=== PATIENT | male | born 1945 | race Caucasian/White ===

== ENCOUNTER → 2017-03-08 08:40 | Outpatient (CLI) | payer MEDICARE ==
[2016-01-17 12:45] VITALS: BMI 28.4
[~2017-03-08 08:40] MED LIST: BAYER CHEWABLE81 MG PO; CORTISPORIN EY7.5 ML OTH; GLUCOPHAGE500 MG PO; IPRAT-ALBUT 0.5-3 ML UPD; LASIX40 MG PO; LEVAQUIN750 MG PO; MEDROL DOSE PACK4 MG PO; MUCINEX600 MG PO; PLAVIX75 MG PO; TOPROL XL100 MG PO; ZESTRIL20 MG PO; ZOCOR20 MG PO; ZOCOR40 MG PO
== END | disposition home or self-care (01) ==
LOC: D.CT 08:40
DX: I71.2 Thoracic aortic aneurysm, without rupture (principal)

== ENCOUNTER 2017-11-20 05:15 | Day surgery (SDC) | payer MEDICARE ==
[~2017-11-20] VITALS: Ht 182.9 cm; Wt 88.9 kg
--- NOTE | ~2017-11-20 | OP ---
PATIENT NAME: MEJIA CODY MEDICAL RECORD: [id number] :41 LOCATION:D.OPS ADMISSION DATE: SURGEON: JOCELYNE LEE MD DATE OF OPERATION: 11/20/2017 PREOPERATIVE DIAGNOSIS: Cecal polyp. POSTOPERATIVE DIAGNOSIS: Sessile cecal polyp of 3.2 cm. PROCEDURES: 1. Total colonoscopy to cecum. 2. Colonic polypectomy utilizing the argon plasma research development director with tattooing. SURGEON: Jocelyne Lee MD WARD CLERK: None. BLOOD LOSS: Minimal. ANESTHESIA: General. COMPLICATIONS: None. The risks, possible complications and alternatives to procedure were explained to the patient. He elects to proceed. OPERATIVE COURSE: The patient was conveyed to the operating room electively on 11/20/2017. General anesthesia was induced by the anesthesia staff. The patient was placed in the Lyle position. A digital rectal examination was performed. A colonoscope was inserted through the anus. It was easily advanced to the cecum. The prep was adequate. Cold endoscopic biopsies were obtained of the cecal polyp, which appeared to drape over the appendiceal orifice. I then ablated the polypoid base with the argon plasma research development director utilizing the right colon setting in the forced mode. As I am concerned that the patient may require a resection of this area, I then advanced the sclerotherapy needle. I had advanced the needle into the submucosal tissues and injected 3 cc of Terrie ink for a tattooing. I then slowly withdrew the endoscope. The pullback was greater than 13-minute pullback. A retroflexed view was obtained in the rectum. I then unretroflexed the scope and removed it under direct vision. I should make note that at the hepatic flexure, I noted a lipoma that was on the back side of a fold. I will see the patient in my office in 2-3 weeks. We will review the results of the biopsies at that time. I may recommend a cecectomy at that time, which could be performed laparoscopically. TRANSINT:[id number] Voice Confirmation ID: [id number] DOCUMENT ID: [id number] 12/16/2017 Edited to correct lithographic proofer error on postop alix dmmariya. OPERATIVE REPORT [id number] MEJIA CODY JOCELYNE LEE MD at 1511 CC: ANTIONE FONSECA M.D., LEENA COELHO MD and VISHAL PATEL [id number] DICTATION DATE: 11/20/17 0942 COMMUNICATIONS SUPERVISOR: 11/20/17 1111 [facility] 11/20/17 [address] [place] [address]
[~2017-11-20 05:15] MED LIST changes: +BYSTOLIC10 MG PO
[2017-11-20 06:29] VITALS: Ht 182.9 cm; Wt 88.9 kg
[2017-11-20 07:51] LABS: HEMATOCRIT 43.2 % (42.0-54.0); HEMOGLOBIN 14.2 g/dL (13.5-17.5); MCHC 32.9 g/dL (31.0-37.0); MCV 97.3 fL (80.0-100.0); MEAN PLATELET VOLUME 9.6 fL (7.4-10.4); RBC 4.44 10x6/uL (4.20-6.10); WBC 10.2 10x3/uL (4.8-10.8)
== END 2017-11-20 11:30 | disposition home or self-care (01) ==
LOC: D.OPS 05:15 → D.PAN 08:00 → D.OPS 08:00 → D.PAN 10:00 → D.OPS 10:00
PROVIDERS: Anesthesiology
DX: D12.0 Benign neoplasm of cecum (principal); Z01.812 Encounter for preprocedural laboratory examination

== ENCOUNTER 2018-02-12 06:06 | Inpatient (IN) | payer MEDICARE ==
[~2018-02-12] VITALS: Ht 182.9 cm; Wt 88.6 kg
--- NOTE | ~2018-02-12 | OP ---
PATIENT NAME: MEJIA CODY MEDICAL RECORD: [id number] :41 LOCATION:D.MS Chung2231 ADMISSION DATE:02/12/18 SURGEON: JOCELYNE LEE MD DATE OF OPERATION: 02/12/2018 PREOPERATIVE DIAGNOSIS: Endoscopically unresectable cecal polyp. POSTOPERATIVE DIAGNOSIS: Endoscopically unresectable cecal polyp. PROCEDURE: Laparoscopic cecectomy. SURGEON: Jocelyne Lee MD OPERATIONAL METEOROLOGIST: None. BLOOD LOSS: Minimal. ANESTHESIA: General. COMPLICATIONS: None. As I am removing the patient's cecum, this is a partial colectomy. The patient failed endoscopic removal. I tattooed the polyp. OPERATIVE COURSE: The patient was conveyed to the operating room electively on 02/12/2018. General anesthesia was induced by the anesthesia staff. The abdomen was sterilely prepped and draped. A small skin lady was accomplished in the left upper quadrant. Veress needle was inserted through the skin lady into the peritoneal cavity. CO2 insufflation was begun. Once a sufficient pneumoperitoneum had been achieved, a 5-mm trocar was inserted through an incision in the left lower quadrant. Under direct internal vision utilizing a television camera, a 12-mm trocar was inserted through an incision at the umbilicus. Another 5-mm trocar was inserted through an incision in the right lower quadrant. During insertion of the Veress needle and all trocars, there appeared to have been no injury to the bowels, any intraperitoneal or retroperitoneal structures. Abdominal survey was undertaken. The liver was without nodules. There is no evidence of cirrhosis. I incised along the right white line of Toldt. I folded the cecum medially. I took down the mesoappendix with the EnSeal device. In order to better identify the ileocecal valve, I took down a very redundant fold of Treves with the EnSeal device. I then grasped the appendix and pulled it caudad. I stapled away the cecum with an Endo-ALEX type stapler with blue loads. I put within an endoscopic retrieval bag and withdrew it through the umbilical fascial defect. I opened up the specimen on the back table. I saw no polypoid tissue. I asked Dr. Whitehead from the pathology department come over and inspect the cecum with me, she did this. We identified no polyp within the specimen. I then rescrubbed and regowned. I returned to the operation and then I grasped the remaining colonic tissue and identified the polyp on the lateral surface of the colon. I stapled very close to the ileocecal valve. I then angled my stapler cephalad. I then placed this tissue in an endoscopic retrieval bag and OPERATIVE REPORT [id number] MEJIA CODY withdrew it through the umbilical fascial defect. I opened up the specimen on the back table. It did reveal that the polyp was contained within this excised specimen and that there was a margin of tissue around it, I grossly freed of the polyp. The tattoo was also contained within the specimen. I then rescrubbed and regowned. I returned to the operation and irrigated in the abdomen. There was no bleeding even at low pressure of 8. The Tre-Claudia suture closure device and 0 Vicryl sutures were used to close the umbilical fascia. The umbilical skin was closed with interrupted 4-0 Vicryl Rapide sutures. The other 2 skin incisions were closed with interrupted intracuticular 3-0 Vicryl. Benzoin and Steri-Strips were applied. The patient was extubated and conveyed to post-anesthesia care unit where he was in stable condition. As he has undergone a colon resection, he will be placed in an admission status. TRANSINT:[id number] Voice Confirmation ID: [id number] DOCUMENT ID: [id number] JOCELYNE LEE MD at 1227 CC: ANTIONE FONSECA M.D., LEENA COELHO MD and VISHAL PATEL [id number] DICTATION DATE: 02/12/18 1205 SANITATION DIRECTOR: 02/12/18 1322 DIS IN 02/13/18 [facility] [address] [place] [address]
--- NOTE | ~2018-02-12 | DS ---
PATIENT:MEJIA CODY :41 MEDICAL RECORD: [id number] DISCHARGE SUMMARY ADMISSION DATE: 02/12/18 DISCHARGE DATE: 02/13/18 PRINCIPAL DIAGNOSIS: Endoscopically unresectable cecal polyp. OTHER DIAGNOSES: Include cardiac arrhythmia, hypertension, peripheral vascular disease, hypercholesterolemia, cardiac rhythm problems, carotid artery disease, thoracic aortic aneurysm, abdominal aortic aneurysm, heart murmur, insomnia. PRINCIPAL PROCEDURE: Laparoscopic cecectomy. HOSPITAL COURSE: The patient was admitted. He underwent the above operative procedure. The pathology on the cecum revealed an appendix with no significant pathologic changes. There was also a cecal polyp, which revealed a sessile tubulovillous adenoma close to the site of a tattoo pigment. There was focal high-grade dysplastic changes. No invasive neoplasm was noted. The patient was admitted to inpatient status. However, he was doing so well, felt that he could go home on the first postoperative day. The patient was having some insomnia. I prescribed Restoril for the insomnia. He was dismissed home with [place] for pain. TRANSINT:[id number] Voice Confirmation ID: [id number] DOCUMENT ID: [id number] JOCELYNE LEE MD at 1842 CC: LEENA COELHO MD and VISHAL PATEL DO [id number] DICTATION DATE: 03/26/18 0856 STAKER SURVEYING: 03/26/18 1128 DIS IN 02/13/18 [facility] [address] [place] [address]
[2018-02-12 07:48] VITALS: BP 116/56; BMI 26.5
[2018-02-12 08:26] LABS: HEMATOCRIT 42.9 % (42.0-54.0); HEMOGLOBIN 14.2 g/dL (13.5-17.5); MCHC 33.1 g/dL (31.0-37.0); MCV 96.6 fL (80.0-100.0); MEAN PLATELET VOLUME 9.6 fL (7.4-10.4); RBC 4.44 10x6/uL (4.20-6.10); RDW 13.8 % (11.5-14.5); WBC 8.1 10x3/uL (4.8-10.8)
[2018-02-12 08:40] LABS: CALC OSMOLALITY 283 mosm/kg (275-300); CALCIUM 9.2 mg/dL (8.5-10.1); CARBON DIOXIDE 21.8 mmol/L (21.0-32.0); CHLORIDE - SERUM 105 mmol/L (98-107); GLUCOSE 118 mg/dL (74-106); POTASSIUM - SERUM 4.9 mmol/L (3.5-5.1); SODIUM 139 mmol/L (136-145); UREA NITROGEN 27 mg/dL (7-18); eGFR NON AFRICAN AMERICAN 78 mL/min (90-120)
[2018-02-12 15:15] VITALS: BP 126/55; Ht 182.9 cm; Wt 88.6 kg
[2018-02-12 15:30] VITALS: BP 126/55
[2018-02-12 20:00] VITALS: BP 116/52
[2018-02-13 04:00] VITALS: BP 140/63
== END 2018-02-13 08:28 | disposition home or self-care (01) | DRG 331 ==
LOC: D.SDCHOLD 06:06 → D.MS 06:06 → D.SDCHOLD 08:45 → D.OPS 08:45 → EDSTATUS 09:45 → D.PAN 09:45 → D.OPS 10:15 → D.MS 14:50
PROVIDERS: Anesthesiology; Surgery
PROC: 0DTH4ZZ Resection of Cecum, Percutaneous Endoscopic Approach (ICD-10-PCS; principal; 2018-02-12 08:45)
DX: D12.0 Benign neoplasm of cecum (principal); I10 Essential (primary) hypertension; E11.9 Type 2 diabetes mellitus without complications; E78.2 Mixed hyperlipidemia; F17.200 Nicotine dependence, unspecified, uncomplicated; H10.45 Other chronic allergic conjunctivitis

== ENCOUNTER → 2018-04-01 13:55 | Outpatient (CLI) | payer MEDICARE ==
[2018-02-12 15:15] VITALS: BMI 26.5
== END | disposition home or self-care (01) ==
LOC: D.CT 13:55
DX: I71.6 Thoracoabdominal aortic aneurysm, without rupture (principal)

== ENCOUNTER → 2019-04-23 12:49 | Outpatient (CLI) | payer MEDICARE ==
[2018-02-12 15:15] VITALS: BMI 26.5
== END | disposition home or self-care (01) ==
LOC: D.CT 12:49
PROVIDERS: ATTEND Internal Medicine Cardiovascular Disease
DX: I71.4 Abdominal aortic aneurysm, without rupture (principal)

== ENCOUNTER 2019-08-25 11:32 | Observation (INO) | payer MEDICARE ==
[~2019-08-25] VITALS: Ht 182.9 cm; Wt 72.3 kg
[2019-08-25 12:06] LABS: APPEARANCE CLEAR (CLEAR); COLOR STRAW (YELLOW)
[2019-08-25 12:07] LABS: BILIRUBIN NEGATIVE (NEGATIVE); GLUCOSE 250 mg/dL (NEGATIVE); KETONE NEGATIVE (NEGATIVE); NITRITE NEGATIVE (NEGATIVE); PROTEIN NEGATIVE (NEGATIVE); UROBILINOGEN NORMAL (NORMAL)
[2019-08-25 12:08] LABS: BASOPHILS 0.2 % (0-2); EOSINOPHILS 2.2 % (0-7); HEMATOCRIT 39.2 % (42.0-54.0); HEMOGLOBIN 12.8 g/dL (13.5-17.5); IMMATURE GRANULOCYTES 0.4 % (0-5); LYMPHOCYTES 21.1 % (15-50); MCH 31.7 pg (26.0-34.0); MCHC 32.7 g/dL (31.0-37.0); MEAN PLATELET VOLUME 10.1 fL (7.4-10.4); MONOCYTES 6.7 % (2-11); NEUTROPHILS 69.4 % (40-80); PLATELET COUNT 199 10x3/uL (130-400); RBC 4.04 10x6/uL (4.20-6.10); RDW 12.6 % (11.5-14.5); WBC 8.9 10x3/uL (4.8-10.8)
[2019-08-25 12:21] LABS: ALBUMIN 3.6 g/dL (3.4-5.0); ALKALINE PHOSPHATASE 81 U/L (46-116); ALT (SGPT) 41 U/L (10-68); BILIRUBIN - TOTAL 0.38 mg/dL (0.2-1.3); CALC OSMOLALITY 289 mosm/kg (275-300); CALCIUM 9.3 mg/dL (8.5-10.1); CARBON DIOXIDE 27.1 mmol/L (21.0-32.0); CHLORIDE - SERUM 102 mmol/L (98-107); CREATININE - SERUM 1.1 mg/dL (0.6-1.3); MAGNESIUM - SERUM 1.6 mg/dL (1.8-2.4); POTASSIUM - SERUM 4.5 mmol/L (3.5-5.1); PROTEIN - SERUM 7.1 g/dL (6.4-8.2); SODIUM 136 mmol/L (136-145); UREA NITROGEN 16 mg/dL (7-18); eGFR NON AFRICAN AMERICAN 69 mL/min (90-120)
[2019-08-25 12:29] LABS: KETONE - SERUM NEGATIVE (NEGATIVE)
[2019-08-25 12:30] LABS: GLUCOSE 413 mg/dL (74-106)
--- NOTE | 2019-08-25 13:02 | NUR ---
FSBS 303.
--- NOTE | 2019-08-25 14:36 | NUR ---
MET PATIENT. PATIENT WANTED ME TO CHECK HIS BLOOD GLUCOSE BECAUSE IT HAS DROPPED TREMENDOUSLY. BG IS AT 296. TOLD HIM I WOULD RECHECK AROUND DINNER TIME. THAT HE ABSOLUTELY HAD TO BE OUT OF HERE BY 1200 TOMORROW. THAT IT WAS FINANCIAL IMPERATIVE. GAMAL IS PAGING POORNIMA TO COME SEE HIM. PATIENT HAS WENT TO HIS CAR. JOKED THAT HE WAS GOING TO [employer] TO GET SOME FOOD BECAUSE THEY GAVE HIM VEGETARIAN LASAGNA. TOLD HIM THAT WOULD JUST INCREASE HIS BLOOD GLUCOSE EVEN MORE.
[2019-08-25 15:03] VITALS: BP 134/60; Ht 182.9 cm; Wt 72.3 kg
[2019-08-25] MEDS ORDERED: GLUCOPHAGE1000 MG PO (15:06)
[2019-08-25] MEDS ORDERED: LISINOPRIL5 MG PO (15:07)
[2019-08-25 16:45] VITALS: BP 143/80
--- NOTE | 2019-08-25 18:12 | NUR ---
PATIENT SITTING ON SIDE OF BED. REQUESTED AND RECEIVED COFFEE. NO NEEDS AT THIS TIME. CL IN REACH. WCTM
[2019-08-25 20:00] VITALS: BP 120/64
[2019-08-26] VITALS: BP 184/80
[2019-08-26 04:00] VITALS: BP 117/75
--- NOTE | 2019-08-26 04:08 | NUR ---
I have reviewed this patient and I concur with the Shift Assessment completed by the Licensed Practical Nurse today this shift.
[2019-08-26 04:45] LABS: BASOPHILS 0.5 % (0-2); EOSINOPHILS 4.5 % (0-7); HEMOGLOBIN 12.9 g/dL (13.5-17.5); IMMATURE GRANULOCYTES 0.3 % (0-5); LYMPHOCYTES 29.9 % (15-50); MCH 31.8 pg (26.0-34.0); MCHC 33.1 g/dL (31.0-37.0); MCV 96.1 fL (80.0-100.0); MEAN PLATELET VOLUME 10.3 fL (7.4-10.4); MONOCYTES 9.1 % (2-11); NEUTROPHILS 55.7 % (40-80); PLATELET COUNT 201 10x3/uL (130-400); RBC 4.06 10x6/uL (4.20-6.10); RDW 12.8 % (11.5-14.5); WBC 7.6 10x3/uL (4.8-10.8)
[2019-08-26 05:00] LABS: ALBUMIN 3.2 g/dL (3.4-5.0); ALKALINE PHOSPHATASE 70 U/L (46-116); ALT (SGPT) 38 U/L (10-68); BILIRUBIN - TOTAL 0.31 mg/dL (0.2-1.3); CALCIUM 8.9 mg/dL (8.5-10.1); CARBON DIOXIDE 28.2 mmol/L (21.0-32.0); CHLORIDE - SERUM 105 mmol/L (98-107); MAGNESIUM - SERUM 1.6 mg/dL (1.8-2.4); PROTEIN - SERUM 6.5 g/dL (6.4-8.2); SODIUM 141 mmol/L (136-145); UREA NITROGEN 13 mg/dL (7-18)
[2019-08-26 05:08] LABS: CALC OSMOLALITY 281 mosm/kg (275-300); CREATININE - SERUM 0.6 mg/dL (0.6-1.3); GLUCOSE 122 mg/dL (74-106); POTASSIUM - SERUM 3.8 mmol/L (3.5-5.1); eGFR NON AFRICAN AMERICAN > 90 mL/min (90-120)
[2019-08-26] MEDS ORDERED: NICODERM C1 PATCH .1 TRANSDERM (09:45)
[2019-08-26] MEDS ORDERED: JANUMET XR 50-1 EACH PO (09:46)
[2019-08-26 09:48] VITALS: BP 169/67
--- NOTE | 2019-08-26 09:56 | NUR ---
NUTRITION CONSULT. PT REPORTS HE HAS HAD DIABETIC EDU SEVERAL TIMES AND HAS MET WITH DIETITIANS BEFORE. STATES HE JUST NEEDS TO PAY MORE ATTENTION TO HIS DIET AND THAT DR. COELHO IS SUPPOSED TO CHANGE HIS MEDS. DECLINES ANY FURTHER INFORMATION AND VOICES NO QUESTIONS AT THIS TIME. RD FOLLOWING
--- NOTE | 2019-08-26 10:12 | NUR ---
PT ALERT X 4. BREATH SOUNDS CLEAR BILAT. IV TO LEFT AC DC'D, TIP INTACT. PT REPORTING NO PAIN AT THIS TIME. PT BEING DC'D TO HOME TODAY. BED LOW, CALL LIGHT IN REACH. NO OTHER NEEDS AT THIS TIME.
== END 2019-08-26 11:13 | disposition home or self-care (01) ==
LOC: D.ER 11:32 → D.MS 12:27 → OBSVTIME 13:20 → D.MS 08-26 11:13
PROVIDERS: Family Medicine; ADMIT Family Medicine; ATTEND Family Medicine
DX: E11.65 Type 2 diabetes mellitus with hyperglycemia (principal); I11.0 Hypertensive heart disease with heart failure; I50.9 Heart failure, unspecified; J44.9 Chronic obstructive pulmonary disease, unspecified; I73.9 Peripheral vascular disease, unspecified; Z95.0 Presence of cardiac pacemaker

== ENCOUNTER 2020-04-05 11:32 | Inpatient (IN) | payer MEDICARE ==
[~2020-04-05] VITALS: Ht 182.9 cm; Wt 62.8 kg
--- NOTE | ~2020-04-05 | HEMODYNAMI ---
PATIENT:DWIGHT CODY MEDICAL RECORD: [id number] : 41 LOCATION:D.MS Chung2210 ADMISSION DATE: 04/05/20 Generatedon:04/07/202011:36 Patient name: DWIGHT CODY Patient #: [id number] SSN: : 1945 Date of study: 04/07/2020 Page: Of Hemodynamic Procedure Report Patient Data Patient Demographics Procedure consent was obtained First Name: DWIGHT Gender: Male Last Name: ESCOBAR : 1945 [facility] Initial: PRISCILA Age: 74 year(s) Patient #: [id number] Race: Unknown Additional ID: [id number] Contact details [address]: [address] [place] [address] State: [place] City: [place] Zip code: [address] Past Medical History Allergies: No known allergies Admission Admission Data Admission Date: 04/05/2020 Admission Time: 14:45 Room #: D.2210 Procedure Procedure Types Cath Procedure Peripheral Cath Diagnostic Procedure Mysql Database Administrator Peripheral Procedures Biliary Biliary Drain External Procedure Description Procedure Date Procedure Date: 04/07/2020 Procedure Start Time: 10:43 Procedure Staff Name Function Dwight Pickering MD Performing Physician Yris Keith RT Applied Mathematician Ryan Green MD Additional personnel Tanisha Wallace RN Nurse Miky Mendoza RT Scrub Bernardo Boothe CRNA Additional personnel Procedure Data Cath Procedure Fluoroscopy Diagnostic fluoroscopy Total fluoroscopy Time: time: 16.5 min 16.5 min Diagnostic fluoroscopy Total fluoroscopy dose: 341 dose: 341 mGy mGy Contrast Material Contrast Material Type Amount (ml) Isovue 300 55 Diagnostic catheters Device Type Used For End Catheter Placement Merit Impress KA2 5Fr 65CM catheter ([id number]) Procedure Medications Medication Administration Route Dosage Heparin Flush Bag added to field 1 bags (1000units/500ml NS) Lidocaine 1% added to field 20 Refer to Anesthesia Notes for Sedation Medications Hemodynamics Rest Pre Cath Intra NCS Post Cath Medications Time Medication Route Dose Verified Delivered Reason Notes Effe ctiveness by by 10:42:34 Heparin Flush added 1 Dwight Quintanilla used for Bag to bags Pickering Pickering procedure (1000units/500ml field MD VALDEZ NS) 10:43:49 Lidocaine 1% added 20ml Dwight Quintanilla for local to vial Pickering Pickering anesthetic field MD VALDEZ 10:44:00 Refer to Dwight Quintanilla Anesthesia Notes Pickering Pickering for Sedation MD VALDEZ Medications Procedure Log Time Note 9:59:49 Use device set IR Diagnostic 10:15:00 Miky Reji RT (R) (CV) sent for patient. Start room use. 10:15:06 Time tracking: Regular hours (M-F 7:00 - 5:00) 10:15:11 Plan of Care:Hemodynamics will remain stable., Cardiac rhythm will remain stable., Comfort level will be maintained., Respiratory function will remain adequate., Patient/ family verbilizes understanding of procedure., Procedure tolerated without complication., Recovers from procedure without complications.. 10:15:17 Patient received from Med/Surg to IR Alert and oriented. Tansferred to table in Supine position. 10:15:21 Signed procedure consent form obtained from patient. 10:15:23 Correct patient and procedure confirmed by team. 10:15:24 - 10:15:39 SEE ANESTHESIA NOTE FOR PRE PROCEDURE TIVA 10:15:40 - 10:15:45 Use device set IR Diagnostic 10:15:48 Bag Decanter () opened to sterile field. 10:15:49 Sterile Angiographic Pack opened to sterile field. 10:15:50 Tegaderm 4 x 4 (1626W) opened to sterile field. 10:36:52 KIT, INTRODUCER ACCUSTICK II W/C ([id number]) opened to sterile field. 10:36:54 Tegaderm 4 x 4 (1626W) opened to sterile field. 10:36:55 Sterile Angiographic Pack opened to sterile field. 10:36:56 Bag Decanter (2002S) opened to sterile field. 10:37:12 STOPCOCK 3-Way Large Bore ([id number]) opened to sterile field. 10:37:14 BAG, DRAINAGE EMPTY 600ML W/LADONNA (WHF353) opened to sterile field. 10:41:44 - 10:41:53 Patient allergic to No known allergies 10:42:02 Is the patient allergic to Iodine/contrast media? No. 10:42:07 - 10:42:15 Physician arrived 10:42:16 --------ALL STOP TIME OUT------ 10:42:16 Final Timeout: patient, procedure, and site verified with staff and physician. All members of the team are in agreement. 10:42:34 Heparin Flush Bag (1000units/500ml NS) 1 bags added to field was administered by Dwight Pickering MD; used for procedure; Verbal order read back and verified. 10:43:22 Fire Safety Assessment: A--An alcohol-based skin anteseptic being used preoperatively., C--Open oxygen or nitrous oxide is being used. 10:43:33 Procedure started. 10:43:33 Full Disclosure recording started 10:43:39 Local anesthetic to Abdominal area with Lidocaine 1% by Dwight Pickering MD.INITIAL ACCESS ONLY 10:43:49 Lidocaine 1% 20ml vial added to field was administered by Dwight Pickering MD; for local anesthetic; Verbal order read back and verified. 10:44:00 Refer to Anesthesia Notes for Sedation Medications was administered by Dwight Pickering MD; ; Verbal order read back and verified. 10:45:26 ULTRASOUND WAS USED TO OBTAIN ACCESS 10:52:33 AD .035 145 glide wire (D15025) opened to sterile field. 10:54:29 GLIDE CATHETER 4FR Straight 65cm (CG412) opened to sterile field. 11:11:47 A Optimus Impress KA2 5Fr 65CM catheter ([id number]) was advanced over the wire and used for . 11:22:03 DILATOR, VESSEL 07/05 opened to sterile field. 11:22:04 PEELAWAY 9FR Safe Sheath (SU9) opened to sterile field. 11:22:05 GLIDE WIRE ANGLE 180cm (GZ7784) opened to sterile field. 11:25:04 Cook BILIARY 12 FR drainage catheter (Z25070) opened to sterile field. 11:32:19 Procedure ended.(Physican Out) 11:32:21 Procedure ended.(Physican Out) 11:33:00 Fluoroscopy time 16.50 minutes. 11:33:07 Flurop Dose total: 341 11:33:07 Fluoroscopy dose: 341 mGy 11:33:43 Contrast amount:Isovue 300 55ml. 11:34:18 Report given to Recovery Room. Device Usage Item Name Manufacture Quantity Catalog Hospital Part Current Minimal Lot# / Number Charge Number Stock Stock Serial# Code Bag Decanter Microtek 2 [id number] 78975 [id number] 5 () Medical Inc. Sterile Cardinal 2 [id number] 974451 260250 5 Angiographic Health Pack Tegaderm 4 x 3M 2 1626W 630842 139443 338509 5 4 (1626W) KIT, Crooks 1 [id number] 227892 083451 611358 5 INTRODUCER Scientific ACCUSTICK II W/C ([id number]) STOPCOCK Cook Medical 1 M07599 141214 0963 372547 [id number] 3-Way Large Bore (F14389) BAG, Merit 1 LRF163 620661 383344 470143 5 [id number] DRAINAGE Medical EMPTY 600ML W/LADONNA (CHV757) [facility] Cook Medical 1 N15766 883683 513881 272743 5 [id number] .035 145 glide wire (R86416) GLIDE Terumo 1 CG412 789998 466815 5 CATHETER 4FR Straight 65cm (CG412) Merit Merit 1 [id number] 300739 129306 5 Impress KA2 Medical 5Fr 65CM catheter ([id number]) DILATOR, Cook Medical 1 A52367 607217 68760 692596 5 VESSEL 1020 PEELAWAY 9FR Microtek 1 SU9 565400 348378 548728 5 Safe Sheath Edai. (SU9) GLIDE WIRE Terumo 1 [id number] 818550 075100 860691 5 ANGLE 180cm (FA7825) Cook BILIARY Cook Medical 1 A32599 086416 013196 060941 5 [id number] 12 FR drainage catheter (V90514) Signature Audit [place] Stage Time Signature Unsigned Intra-Procedure 04/07/2020 Yris Keith 11:36:45 AM RT(R) [facility] [address] [place] [address]
[~2020-04-05 11:32] MED LIST changes: +GLUCOPHAGE1000 MG PO; +JANUMET XR 50-1 EACH PO; +LISINOPRIL5 MG PO; +NICODERM C1 PATCH .1 TRANSDERM
--- NOTE | 2020-04-05 11:45 | NUR ---
URINE TO LAB
[2020-04-05] MEDS ORDERED: GLUCOPHAGE500 MG PO (12:26)
[2020-04-05 12:34] LABS: BASOPHILS 0.6 % (0-2); EOSINOPHILS 1.5 % (0-7); HEMATOCRIT 27.6 % (42.0-54.0); IMMATURE GRANULOCYTES 1.4 % (0-5); LYMPHOCYTES 11.9 % (15-50); MCH 32.3 pg (26.0-34.0); MCHC 32.6 g/dL (31.0-37.0); MCV 98.9 fL (80.0-100.0); MEAN PLATELET VOLUME 11.2 fL (7.4-10.4); MONOCYTES 6.4 % (2-11); NEUTROPHILS 78.2 % (40-80); RBC 2.79 10x6/uL (4.20-6.10); RDW 17.5 % (11.5-14.5); WBC 7.2 10x3/uL (4.8-10.8)
[2020-04-05 12:36] LABS: PLATELET COUNT 243 10x3/uL (130-400)
[2020-04-05 12:38] LABS: BILIRUBIN 3+ (NEGATIVE); GLUCOSE 500 mg/dL (NEGATIVE); KETONE NEGATIVE (NEGATIVE); NITRITE NEGATIVE (NEGATIVE); UROBILINOGEN NORMAL (NORMAL)
[2020-04-05 12:40] LABS: BACTERIA MANY /hpf (NEGATIVE); RED CELLS - URINE NONE SEEN /hpf (0-5)
[2020-04-05 12:41] LABS: EPITHELIAL CELLS 0-5 /hpf (0-5)
[2020-04-05 12:44] LABS: CALC OSMOLALITY 283 mosm/kg (275-300); CALCIUM 9.3 mg/dL (8.5-10.1); CARBON DIOXIDE 24.3 mmol/L (21.0-32.0); CHLORIDE - SERUM 100 mmol/L (98-107); CREATININE - SERUM 0.8 mg/dL (0.6-1.3); POTASSIUM - SERUM 4.2 mmol/L (3.5-5.1); SODIUM 134 mmol/L (136-145); UREA NITROGEN 26 mg/dL (7-18); eGFR NON AFRICAN AMERICAN > 90 mL/min (90-120)
[2020-04-05 12:46] LABS: GLUCOSE 288 mg/dL (74-106)
[2020-04-05 12:54] LABS: APTT 26.1 SECONDS (22.8-39.4); INR 0.91 (0.85-1.17); PROTIME 12.3 SECONDS (11.6-15.0)
[2020-04-05 13:01] LABS: ALBUMIN 2.5 g/dL (3.4-5.0); ALT (SGPT) 479 U/L (10-68); AMYLASE - SERUM 12 U/L (25-115); BILIRUBIN - TOTAL 22.29 mg/dL (0.2-1.3); CKMB 0.6 U/L (0.0-3.6); CREATINE KINASE 15 UL (21-232); LIPASE 68 U/L (73-393); MAGNESIUM - SERUM 1.5 mg/dL (1.8-2.4); PROTEIN - SERUM 5.8 g/dL (6.4-8.2); TROPONIN-I < 0.017 ng/mL (0.000-0.060)
[2020-04-05 13:20] LABS: ALKALINE PHOSPHATASE 1697 U/L (30-120)
--- NOTE | 2020-04-05 15:57 | NUR ---
RECEIVED PATIENT FROM ER. ALERT AND ORIENTED. NO C/O PAIN. NO S/S OF ACUTE DISTRESS NOTED. JAUNDICE. UP WITH ASSIST. IV TO RIGHT FOREARM, NS INFUSING @ 75ML/HR. SITE PATENT WITHOUT REDNESS OR SWELLING. DENIES ANY NEEDS AT THIS TIME. CALL LIGHT IN REACH. WILL CONTINUE TO MONITOR.
[2020-04-05 17:03] LABS: % SATURATION 24 % (15-55); IRON 51 ug/dl (35-150); TOTAL IRON BIND CAPACITY 207 ug/dl (260-445); UNSAT IRON BIND CAPACITY 156 ug/dl (150-375)
[2020-04-05 17:14] VITALS: BP 134/60; BMI 18.3
[2020-04-05 17:17] VITALS: BP 134/60
--- NOTE | 2020-04-05 17:56 | NUR ---
PT WAS NOT NPO AT 6 PM TO DO GB U/S. TALKED TO PT AND NURSE. WILL BE NPO AT MIDNIGHT AND U/S IN AM. SIMONE CAZARES
[2020-04-05 18:45] LABS: MAGNESIUM - SERUM 1.6 mg/dL (1.8-2.4)
[2020-04-05 18:47] LABS: BILIRUBIN - DIRECT 21.04 mg/dL (0.00-0.30)
--- NOTE | 2020-04-05 19:30 | NUR ---
PT SEEN STROLLING AROUND THE UNIT. AMBULATES INDEPENDENTLY. A&O X 4. SKIN JAUNDICED, SCLERA YELLOW. NO NEEDS VOICED AT THIS TIME, CTM.
[2020-04-05 20:00] VITALS: BP 117/58
[2020-04-06] VITALS (10 sets, daily range): BP systolic 110–136; BP diastolic 44–70; Ht 182.9 cm; Wt 62.8 kg
--- NOTE | 2020-04-06 03:19 | NUR ---
I have reviewed this patient and I concur with the Shift Assessment completed by the Licensed Practical Nurse today this shift.
[2020-04-06 06:28] LABS: ALBUMIN 2.3 g/dL (3.4-5.0); ALT (SGPT) 449 U/L (10-68); BILIRUBIN - TOTAL 20.75 mg/dL (0.2-1.3); CARBON DIOXIDE 21.5 mmol/L (21.0-32.0); CHLORIDE - SERUM 102 mmol/L (98-107); POTASSIUM - SERUM 3.8 mmol/L (3.5-5.1); PROTEIN - SERUM 5.3 g/dL (6.4-8.2); SODIUM 135 mmol/L (136-145); UREA NITROGEN 20 mg/dL (7-18)
[2020-04-06 06:44] LABS: ALKALINE PHOSPHATASE 1595 U/L (30-120); CALC OSMOLALITY 275 mosm/kg (275-300); CREATININE - SERUM 0.5 mg/dL (0.6-1.3); GLUCOSE 157 mg/dL (74-106); eGFR NON AFRICAN AMERICAN > 90 mL/min (90-120)
[2020-04-06 07:15] LABS: HEPATITIS C ANTIBODY 0.1 S/CO RAT (0.0-0.9)
[2020-04-06 07:29] LABS: BASOPHILS 0.6 % (0-2); EOSINOPHILS 4.3 % (0-7); HEMATOCRIT 26.8 % (42.0-54.0); HEMOGLOBIN 8.7 g/dL (13.5-17.5); IMMATURE GRANULOCYTES 1.1 % (0-5); LYMPHOCYTES 17.7 % (15-50); MCH 31.8 pg (26.0-34.0); MCHC 32.5 g/dL (31.0-37.0); MCV 97.8 fL (80.0-100.0); MEAN PLATELET VOLUME 11.5 fL (7.4-10.4); MONOCYTES 8.9 % (2-11); NEUTROPHILS 67.4 % (40-80); PLATELET COUNT 256 10x3/uL (130-400); RBC 2.74 10x6/uL (4.20-6.10); RDW 17.1 % (11.5-14.5); WBC 7.2 10x3/uL (4.8-10.8)
--- NOTE | 2020-04-06 08:09 | NUR ---
resting in bed, no distress noted, iv infusing, npo for ercp, cont to monitor sugars and pain
--- NOTE | 2020-04-06 08:25 | NUR ---
unable to do mri due to pacemaker, voice aware
--- NOTE | 2020-04-06 08:31 | NUR ---
MRI ABDOMEN W/WO CONTRAST ORDERED ON PATIENT. PATIENT HAS A PACEMAKER, MARGARTIO WAS NOTIFIED THAT WE CANT DO THE TEST AND SHE SAID SHE WOULD CONTACT DR PATEL. EXAM CANCELLED
--- NOTE | 2020-04-06 13:45 | NUR ---
TAKEN TO GI LAB PER BED,
--- NOTE | 2020-04-06 16:10 | NUR ---
1609 AFTER BILIARY BRUSHINGS 7F 9MM PLASTIC STENT PLACEMENT
--- NOTE | 2020-04-06 16:18 | NUR ---
1619 STENT FAILED TO BE PLACED, WAS WASTED.
--- NOTE | 2020-04-06 17:38 | NUR ---
RETURNED FROM SURGERY, IV INFUSING, WILL BE NPO AFTER MN,
--- NOTE | 2020-04-06 20:00 | NUR ---
ALERT RESTING IN BED, DENIES PAIN OR NEEDS, JAUNDICE IN APPEARANCE, SEE SHIFT ASSESSMENT, CALL LIGHT IN REACH
[2020-04-07] VITALS (9 sets, daily range): BP systolic 102–126; BP diastolic 42–66
[2020-04-07 08:08] LABS: BASOPHILS 0.9 % (0-2); EOSINOPHILS 2.6 % (0-7); HEMATOCRIT 25.9 % (42.0-54.0); HEMOGLOBIN 8.3 g/dL (13.5-17.5); IMMATURE GRANULOCYTES 1.3 % (0-5); LYMPHOCYTES 9.7 % (15-50); MCH 31.8 pg (26.0-34.0); MCV 99.2 fL (80.0-100.0); MEAN PLATELET VOLUME 10.9 fL (7.4-10.4); MONOCYTES 9.4 % (2-11); NEUTROPHILS 76.1 % (40-80); PLATELET COUNT 254 10x3/uL (130-400); RBC 2.61 10x6/uL (4.20-6.10); RDW 17.7 % (11.5-14.5); WBC 7.5 10x3/uL (4.8-10.8)
[2020-04-07 08:55] LABS: ALBUMIN 2.2 g/dL (3.4-5.0); ALT (SGPT) 426 U/L (10-68); BILIRUBIN - TOTAL 22.22 mg/dL (0.2-1.3); CALCIUM 8.6 mg/dL (8.5-10.1); CARBON DIOXIDE 22.2 mmol/L (21.0-32.0); CHLORIDE - SERUM 100 mmol/L (98-107); CREATININE - SERUM 0.6 mg/dL (0.6-1.3); POTASSIUM - SERUM 3.9 mmol/L (3.5-5.1); PROTEIN - SERUM 5.2 g/dL (6.4-8.2); SODIUM 132 mmol/L (136-145); UREA NITROGEN 18 mg/dL (7-18); eGFR NON AFRICAN AMERICAN > 90 mL/min (90-120)
[2020-04-07 08:56] LABS: BILIRUBIN - DIRECT 20.16 mg/dL (0.00-0.30); BILIRUBIN - INDIRECT 2.06 mg/dL (0.00-1.00); CALC OSMOLALITY 266 mosm/kg (275-300); GLUCOSE 98 mg/dL (74-106)
[2020-04-07 09:11] LABS: ALKALINE PHOSPHATASE 1677 U/L (30-120)
[2020-04-07 09:15] LABS: INR 0.97 (0.85-1.17); PROTIME 12.8 SECONDS (11.6-15.0)
--- NOTE | 2020-04-07 12:50 | NUR ---
I have reviewed this patient and I concur with the Shift Assessment completed by the Licensed Practical Nurse today this shift.
--- NOTE | 2020-04-07 18:49 | NUR ---
RESTING IN BED WITH EYES CLOSED. RESPIRATIONS EVEN AND UNLABORED. NO S/S OF ACUTE DISTRESS NOTED. DENIES ANY NEEDS AT THIS TIME. CALL LIGHT IN REACH. WILL CONTINUE TO MONITOR.
--- NOTE | 2020-04-07 20:00 | NUR ---
ALERT UP AMBULATING IN HALLWAY, DENIES PAIN AT THIS TIME, BILLARY DRAINAGE BAG NOTED TO RIGHT SIDE, SMALL AMOUT DARK DRAINAGE NOTED, SEE SHIFT ASSESSMENT, CALL LIGHT IN REACH
[2020-04-08] VITALS: BP 111/48
[2020-04-08 04:00] VITALS: BP 134/58
[2020-04-08 06:29] LABS: EOSINOPHILS 4.5 % (0-7); HEMOGLOBIN 7.9 g/dL (13.5-17.5); IMMATURE GRANULOCYTES 1.7 % (0-5); LYMPHOCYTES 13.2 % (15-50); MCH 32.2 pg (26.0-34.0); MCHC 31.6 g/dL (31.0-37.0); MEAN PLATELET VOLUME 11.5 fL (7.4-10.4); MONOCYTES 9.2 % (2-11); NEUTROPHILS 70.4 % (40-80); PLATELET COUNT 255 10x3/uL (130-400); RBC 2.45 10x6/uL (4.20-6.10); RDW 17.4 % (11.5-14.5); WBC 7.8 10x3/uL (4.8-10.8)
[2020-04-08 06:36] LABS: CALCIUM 8.2 mg/dL (8.5-10.1); CARBON DIOXIDE 23.4 mmol/L (21.0-32.0); CHLORIDE - SERUM 102 mmol/L (98-107); SODIUM 132 mmol/L (136-145); eGFR NON AFRICAN AMERICAN 87 mL/min (90-120)
[2020-04-08 06:37] LABS: CALC OSMOLALITY 272 mosm/kg (275-300); CREATININE - SERUM 0.9 mg/dL (0.6-1.3); GLUCOSE 166 mg/dL (74-106); UREA NITROGEN 24 mg/dL (7-18)
[2020-04-08 08:49] VITALS: BP 118/68
--- NOTE | 2020-04-08 12:00 | NUR ---
IN ROOM. COFFEE SPILLED IN LAP. NEW LINENS PROVIDED. CL IN REACH. NO FURTHER NEEDS AT THIS TIME. WCTM
--- NOTE | 2020-04-08 12:05 | NUR ---
PATIENT READY FOR DISCHARGE. WANTS TO TALK TO HIS DOCTORS. CL IN REACH. WCTM
[2020-04-08 12:47] VITALS: BP 121/50
[2020-04-08 13:01] LABS: ALBUMIN 2.2 g/dL (3.4-5.0); BILIRUBIN - DIRECT 8.2 mg/dL (0.00-0.30); BILIRUBIN - INDIRECT 1.48 mg/dL (0.00-1.00); BILIRUBIN - TOTAL 9.68 mg/dL (0.2-1.3); PROTEIN - SERUM 5.5 g/dL (6.4-8.2)
--- NOTE | 2020-04-08 14:02 | NUR ---
Nutrition Follow-up: Diet: Diabetic PO intake: NPO - 100% - 100% Last BM: none recorded since admit. Wt: 132.6# (04/06/20) Meds noted: SSI Labs noted: Na 132(L), BUN 24(H), Glu 166(H), tbili 9.68(H), dbili 8.2(H), AST 143(H), ALT 327(H), alk phos 1338(H), alb 2.2(L) Recommend continue current diet. Offer oral nutrition supplements. RD following.
--- NOTE | 2020-04-08 14:19 | NUR ---
PT SLEEPING ON BACK. EFRAIN DRAIN FLUSHED. 350 ML REMOVED FROM DRAIN. IN ROOM. CL IN REACH. WCTM
--- NOTE | 2020-04-08 14:48 | MORECARE ---
CASE MANAGEMENT DISCHARGE SUMMARY PATIENT: MEJIA CODY UNIT: [id number] ADM DATE: 04/05/20 AGE: 74 : 43 SEX: M ROOM/BED: D.2210 AUTHOR: DAVE VALENZUELA PHYSICIAN: REFERRING PHYSICIAN: DEMARIO HARRIS MD DATE OF SERVICE: 04/08/20 Discharge Plan Patient Name: MEJIA CODY Facility[facility]:[place] : 1945 Planned Disposition: Home or Self Care Anticipated Discharge Date: Discharge Date: Expected LOS: Initial Reviewer: [email or web address] Initial Review Date: 04/05/2020 Generated: 04/08/20 3:48 pm Comments DCP- Discharge Planning Updated by [email or web address]: Jeanine Gregory on 04/08/20 1:[address] Patient Name: MEJIA CODY Admission Status: ER Accout number: [id number] Admission Date: 04-05-2020 : 1945 Admission Diagnosis:UNSPECIFIED JAUNDICE Attending: GARRETT HARRIS Current LOS: 3 Anticipated DC Date: Planned Disposition: Home or Self Care Primary Insurance: [employer] CHOICE PPO MCR ADVANT Discharge Planning Comments: CM met with patient to complete initial dc planning assessment. CM educated patient on the CM role and verbal consent given by patient to complete assessment. Patient lives at home with his where he is independent with his care. At discharge patient plans to return home and feels this is a safe discharge. CM discussed availability of home health, rehab services, and medical equipment. Patient denied known discharge needs at this time. CM will continue to follow and will assist as needed with dc plans/needs. Sponge Fisherman: Jeanine Gregory DCPIA - Discharge Planning Initial Assessment Updated by [email or web address]: Jeanine Gregory on 04/08/20 2:47 pm * Is the patient Alert and Oriented? Yes * How many steps to enter\exit or inside your home? * PCP [facility] * Pharmacy [facility] * Preadmission Environment Home with Family * ADLs Independent * Equipment None * List name and contact numbers for known caregivers / representatives who currently or will assist patient after discharge: IRENE () [phone] * Verbal permission to speak to the caregivers and representatives has been obtained from the patient. N/A * Community resources currently utilized None * Additional services required to return to the preadmission environment? No * Can the patient safely return to the preadmission environment? Yes * Has this patient been hospitalized within the prior 30 days at any hospital? No Patient Name: MEJIA CODY Page 62064 at 1448 All edits/amendments must be made on the electronic document DICTATION DATE: 04/08/201447 SUPERVISOR SCRAP PREPARATION: RANDI 04/08/201447 RPT#: [id number] DC DATE: STATUS: ADM IN [facility] [address] [place] [address] END OF REPORT
[2020-04-08 16:00] VITALS: BP 104/69
--- NOTE | 2020-04-08 17:05 | NUR ---
PT TAKING A NAP. HAS WENT HOME. CL IN REACH. NO NEEDS AT THIS TIME. WCTM
[2020-04-08 20:00] VITALS: BP 108/51
--- NOTE | 2020-04-08 20:10 | NUR ---
A&O X 4. BLOOD STARTED BY JAREK POTTS. VS REMAINING STABLE. PT DENIES ANY FEELING OF DISCOMFORT. NO S/SX OF DISTRESS, CTM.
[2020-04-09] VITALS: BP 110/45
--- NOTE | 2020-04-09 03:45 | NUR ---
I have reviewed this patient and I concur with the Shift Assessment completed by the Licensed Practical Nurse today this shift.
[2020-04-09 04:00] VITALS: BP 166/64
[2020-04-09 06:22] LABS: BASOPHILS 0.9 % (0-2); IMMATURE GRANULOCYTES 1.8 % (0-5); MCH 30.8 pg (26.0-34.0); MCHC 31.3 g/dL (31.0-37.0); MEAN PLATELET VOLUME 11.7 fL (7.4-10.4); MONOCYTES 9.5 % (2-11); NEUTROPHILS 62.8 % (40-80); PLATELET COUNT 246 10x3/uL (130-400); RDW 19.8 % (11.5-14.5); WBC 7.8 10x3/uL (4.8-10.8)
[2020-04-09 06:25] LABS: HEMOGLOBIN 9.7 g/dL (13.5-17.5); MCV 98.4 fL (80.0-100.0); RBC 3.15 10x6/uL (4.20-6.10)
[2020-04-09 06:39] LABS: ALBUMIN 2.5 g/dL (3.4-5.0); ALKALINE PHOSPHATASE 1266 U/L (30-120); ALT (SGPT) 267 U/L (10-68); CALC OSMOLALITY 283 mosm/kg (275-300); CALCIUM 8.8 mg/dL (8.5-10.1); CHLORIDE - SERUM 104 mmol/L (98-107); CREATININE - SERUM 0.8 mg/dL (0.6-1.3); GLUCOSE 192 mg/dL (74-106); POTASSIUM - SERUM 3.9 mmol/L (3.5-5.1); PROTEIN - SERUM 5.5 g/dL (6.4-8.2); SODIUM 138 mmol/L (136-145); UREA NITROGEN 20 mg/dL (7-18); eGFR NON AFRICAN AMERICAN > 90 mL/min (90-120)
--- NOTE | 2020-04-09 07:33 | NUR ---
ALERT AND ORIENTED. LUNGS CLEAR BILATERALLY. HEART SOUNDS S1 AND S2 HEARD IN ALL [place]. BOWEL SOUNDS ACTIVE X 4. RIGHT SIDE BILI DRAIN PATENT. IV TO RFA PATENT WITHOUT REDNESS. STATES DR HARRIS SUPPOSED "GIVE ME A FOUR HOUR PASS EACH DAY THIS WEEKEND" AND WANTS TO KNOW WHEN MD COMING TO HOSPITAL. DENIES FURTHER NEEDS. WILL CALL MD OR MD COLLEGE DIRECTOR. WILL CONTINUE TO MONITOR.
--- NOTE | 2020-04-09 08:10 | NUR ---
SPOKE WITH GALILEA SIMS WHO STATES TO PUT NSG INSTRUCTION IN THAT PATIENT ALLOWED TO LEAVE HOSPITAL SATURDAY AND SATURDAY FOUR HOURS EACH DAY. STATES TO HAVE PATIENT SCHEDULE LEAVE TIME AROUND BILI DRAIN FLUSHES. NSG INSTRUCTION PLACED.
--- NOTE | 2020-04-09 08:30 | NUR ---
SPOKE WITH MICHAEL YOON ABOUT PATIENT LEAVING. STATES DO NOT USUALLY ALLOW PASSES TO LEAVE HOSPITAL AND WILL HAVE TO TALK WITH DON ABOUT LEAVING.
--- NOTE | 2020-04-09 08:58 | NUR ---
SPOKE WITH HELP DESK ADMINISTRATOR MICHAEL NGO WHO STATES "WE WILL HAVE TO CALL DR HARRIS AND TALK TO HIM OURSELVES AND I WILL LET YOU KNOW." STILL WAITING OK FOR PATIENT TO GO HOME AND COME BACK.
[2020-04-09 09:18] VITALS: BP 169/77
--- NOTE | 2020-04-09 09:34 | NUR ---
SPOKE WITH MARTIN DUMAS WHO STATES BOTH SHE AND MICHAEL HAVE DISCUSSED WITH RADHA AND PATIENT NOT ALLOWED TO LEAVE AND COME BACK. [facility] HAS CALLED DR HARRIS AND WAITING CALL BACK. [facility] SPOKE WITH GALILEA SIMS WHO [facility] WILL HAVE DR HARRIS CALL MANAGED CARE NURSE. OR GALILEA SUPPOSED TO GO AND TALK WITH PATIENT.
--- NOTE | 2020-04-09 10:00 | NUR ---
HOUSE CAR DUMAS ON FLOOR. MADE AWARE THAT PATIENT'S AT DESK WANTING ANSWERS ABOUT PATIENT LEAVING AND COMING BACK. STATES "TRY CALLING DR HARRIS AGAIN." MADE AWARE THAT WAITING MD TO CALL BACK WITH ORDERS OR TO COME SEE PATIENT.
--- NOTE | 2020-04-09 10:02 | NUR ---
ATTEMPTED TO CALL MD AGAIN WITH NO ANSWER. VOICEMAIL LEFT FOR MD TO CALL NURSE BACK. MARTIN DUMAS MADE AWARE AND STATES THAT WILL CALL GALILEA SIMS AGAIN OR SECOND MD. STATES FOR NURSE TO WAIT FOR MD OR MACHINE HEEL SEAT FITTER TO TELL PATIENT CANNOT LEAVE AND COME BACK.
--- NOTE | 2020-04-09 11:16 | NUR ---
300ML DRAINED FROM BILI DRAIN. PATIENT CONTINUES TO REQUEST TO LEAVE. MD AWARE AND IN HOSPITAL. STATES WILL SEE PATIENT.
--- NOTE | 2020-04-09 11:52 | NUR ---
PATIENT CONTINUES TO ASK ABOUT FOUR HOURS LEAVE. MD AWARE. MD STILL HAS NOT SEEN PATIENT.
--- NOTE | 2020-04-09 12:03 | NUR ---
DR HARRIS AND GALILEA SIMS IN ROOM SPEAKING WITH PATIENT NOW.
[2020-04-09] MEDS ORDERED: NICODERM CQ1 EAC3 TRANSDERM (12:12)
[2020-04-09] MEDS ORDERED: MULTI-DAY VITAM1 TAB PO ×2 (12:13→12:17)
[2020-04-09] MEDS ORDERED: AUGMENTIN 875-11 TAB PO (12:16)
[2020-04-09] MEDS ORDERED: FOLIC ACID1 MG PO (12:17)
[2020-04-09] MEDS ORDERED: VITAMIN B-1100 M1 PO (12:17)
--- NOTE | 2020-04-09 12:55 | NUR ---
DISCHARGE EDUCATION PROVIDED BOTH WRITTEN AND VERBAL. VERBALIZED UNDERSTANDING. DENIES FURTHER QUESTIONS. EDUCATION PROVIDED TO PATIENT ON FLUSHING AND DRAINING BILI DRAIN. PATIENT PROVIDED TEACH BACK AND DEMONSTRATED UNDERSTANDING. AT BEDSIDE VERBALIZED UNDERSTANDING. SUPPLIES GIVEN TO FLUSH DRAIN THREE TIMES DAILY FOR THREE DAYS. FLUSHES, GLOVES, ALCOHOL PREP PADS, AND DRAIN CUP PROVIDED. IV REMOVED FROM RFA WITH TIP INTACT. TELEMETRY REMOVED AND RETURNED TO [facility]. PATIENT DC HOME WITH WITH ALL BELONGINGS.
--- NOTE | 2020-04-09 13:07 | MORECARE ---
CASE MANAGEMENT DISCHARGE SUMMARY PATIENT: MEJIA CODY UNIT: [id number] ADM DATE: 04/05/20 AGE: 74 : 43 SEX: M ROOM/BED: D.2210 AUTHOR: DAVE VALENZUELA PHYSICIAN: REFERRING PHYSICIAN: DEMARIO HARRIS MD DATE OF SERVICE: 04/09/20 Discharge Plan Patient Name: MEJIA CODY Facility: [facility]:[place] : 1945 Planned Disposition: Home or Self Care Anticipated Discharge Date: Discharge Date: Expected LOS: Initial Reviewer: [email or web address] Initial Review Date: 04/05/2020 Generated: 04/09/20 2:06 pm Comments DCP- Discharge Planning Updated by [email or web address]: Jeanine Gregory on 04/08/20 1:[address] Patient Name: MEJIA CODY Admission Status: ER Accout number: [id number] Admission Date: 04-05-2020 : 1945 Admission Diagnosis:UNSPECIFIED JAUNDICE Attending: GARRETT HARRIS Current LOS: 3 Anticipated DC Date: Planned Disposition: Home or Self Care Primary Insurance: HUMANA CHOICE PPO MCR ADVANT Discharge Planning Comments: CM met with patient to complete initial dc planning assessment. CM educated patient on the CM role and verbal consent given by patient to complete assessment. Patient lives at home with his where he is independent with his care. At discharge patient plans to return home and feels this is a safe discharge. CM discussed availability of home health, rehab services, and medical equipment. Patient denied known discharge needs at this time. CM will continue to follow and will assist as needed with dc plans/needs. Clinical Genetics Laboratory Chief: Jeanine Gregory DCPIA - Discharge Planning Initial Assessment Updated by [email or web address]: Jeanine Gregory on 04/08/20 2:47 pm * Is the patient Alert and Oriented? Yes * How many steps to enter\exit or inside your home? * PCP MELITON * Pharmacy [facility] * Preadmission Environment Home with Family * ADLs Independent * Equipment None * List name and contact numbers for known caregivers / representatives who currently or will assist patient after discharge: IRENE () [phone] * Verbal permission to speak to the caregivers and representatives has been obtained from the patient. N/A * Community resources currently utilized None * Additional services required to return to the preadmission environment? No * Can the patient safely return to the preadmission environment? Yes * Has this patient been hospitalized within the prior 30 days at any hospital? No External Providers External Provider: [facility] Next Contact Date: Service Request Date: Service Type: Resolution: Reviewer: Comments: Last DP export: 04/08/20 1:48 p Patient Name: MEJIA CODY Page 00418 at 1307 All edits/amendments must be made on the electronic document DICTATION DATE: 04/09/20 1306 MUNITIONS HANDLER SUPERVISOR: RANDI 04/09/20 1306 RPT#: [id number] DC DATE: STATUS: ADM IN [facility] [address] [place] [address] END OF REPORT
--- NOTE | 2020-04-09 15:03 | MORECARE ---
CASE MANAGEMENT DISCHARGE SUMMARY PATIENT: MEJIA CODY UNIT: [id number] ADM DATE: 04/05/20 AGE: 74 : 43 SEX: M ROOM/BED: D.2210 AUTHOR: DAVE VALENZUELA PHYSICIAN: REFERRING PHYSICIAN: DEMARIO HARRIS MD DATE OF SERVICE: 04/09/20 Discharge Plan Patient Name: MEJIA CODY Facility: [facility]:[place] : 1945 Planned Disposition: Home or Self Care Anticipated Discharge Date: Discharge Date: 04/09/2020 Expected LOS: Initial Reviewer: [email or web address] Initial Review Date: 04/05/2020 Generated: 04/09/20 4:02 pm Comments DCP- Discharge Planning Updated by [email or web address]: Jeanine Gregory on 04/08/20 1:[address] Patient Name: MEJIA CODY Admission Status: ER Accout number: [id number] Admission Date: 04-05-2020 : 1945 Admission Diagnosis:UNSPECIFIED JAUNDICE Attending: GARRETT HARRIS Current LOS: 3 Anticipated DC Date: Planned Disposition: Home or Self Care Primary Insurance: HUMANA CHOICE PPO MCR ADVANT Discharge Planning Comments: CM met with patient to complete initial dc planning assessment. CM educated patient on the CM role and verbal consent given by patient to complete assessment. Patient lives at home with his where he is independent with his care. At discharge patient plans to return home and feels this is a safe discharge. CM discussed availability of home health, rehab services, and medical equipment. Patient denied known discharge needs at this time. CM will continue to follow and will assist as needed with dc plans/needs. Rehabilitation Director: Jeanine Gregory DCPIA - Discharge Planning Initial Assessment Updated by [email or web address]: Jeanine Gregory on 04/08/20 2:47 pm * Is the patient Alert and Oriented? Yes * How many steps to enter\exit or inside your home? * PCP M[facility]ON * Pharmacy [facility] * Preadmission Environment Home with Family * ADLs Independent * Equipment None * List name and contact numbers for known caregivers / representatives who currently or will assist patient after discharge: IRENE () [phone] * Verbal permission to speak to the caregivers and representatives has been obtained from the patient. N/A * Community resources currently utilized None * Additional services required to return to the preadmission environment? No * Can the patient safely return to the preadmission environment? Yes * Has this patient been hospitalized within the prior 30 days at any hospital? No Last DP export: 04/09/20 12:07 p Patient Name: MEJIA CODY Page 12603 at 1503 All edits/amendments must be made on the electronic document DICTATION DATE: 04/09/20 1502 FIXED R[address]TE BUS OPERATOR: RANDI 04/09/20 1502 RPT#: [id number] DC DATE:04/09/20 STATUS: DIS IN [facility] [address] [place] [address] END OF REPORT
--- NOTE | 2020-04-10 09:18 | MORECARE ---
CASE MANAGEMENT DISCHARGE SUMMARY PATIENT: MEJIA CODY UNIT: [id number] ADM DATE: 04/05/20 AGE: 74 : 43 SEX: M ROOM/BED: D.2210 AUTHOR: NICOLAS,DOC PHYSICIAN: REFERRING PHYSICIAN: DEMARIO HARRIS MD DATE OF SERVICE: 04/10/20 Discharge Plan Patient Name: MEJIA CODY Facility: [facility]:[place] : 1945 Planned Disposition: Home or Self Care Anticipated Discharge Date: Discharge Date: 04/09/2020 Expected LOS: Initial Reviewer: [email or web address] Initial Review Date: 04/05/2020 Generated: 04/10/20 10:17 am Comments DCP- Discharge Planning Updated by [email or web address]: Susan Geiger on 04/10/20 8:[address] CM notified of discharge and need for HHS. CM met with patient and RONEN signed for [facility]. CM notified [facility] of referral and faxed records. [facility] will be out to admit on Saturday since patient stated he had an appointment on Saturday. Nursing to send home flushes and teach patient on Bili drain before discharge. D/C IMM signed 04/09/20 @ 1240. DCP- Discharge Planning Updated by [email or web address]: Jeanine Gregory on 04/08/20 1:[address] Patient Name: MEJIA CODY Admission Status: ER Accout number: [id number] Admission Date: 04-05-2020 : 1945 Admission Diagnosis:UNSPECIFIED JAUNDICE Attending: GARRETT HARRIS Current LOS: 3 Anticipated DC Date: Planned Disposition: Home or Self Care Primary Insurance: HUMANA CHOICE PPO MCR ADVANT Discharge Planning Comments: CM met with patient to complete initial dc planning assessment. CM educated patient on the CM role and verbal consent given by patient to complete assessment. Patient lives at home with his where he is independent with his care. At discharge patient plans to return home and feels this is a safe discharge. CM discussed availability of home health, rehab services, and medical equipment. Patient denied known discharge needs at this time. CM will continue to follow and will assist as needed with dc plans/needs. Warehouse Loader: Jeanine Gregory DCPIA - Discharge Planning Initial Assessment Updated by [email or web address]: Jeanine Gregory on 04/08/20 2:47 pm * Is the patient Alert and Oriented? Yes * How many steps to enter\exit or inside your home? * PCP MELITON * Pharmacy [facility] * Preadmission Environment Home with Family * ADLs Independent * Equipment None * List name and contact numbers for known caregivers / representatives who currently or will assist patient after discharge: IRENE () [phone] * Verbal permission to speak to the caregivers and representatives has been obtained from the patient. N/A * Community resources currently utilized None * Additional services required to return to the preadmission environment? No * Can the patient safely return to the preadmission environment? Yes * Has this patient been hospitalized within the prior 30 days at any hospital? No Coverage Notice Reviewer: [email or web address] Sunita Geiger Notice Issued Date-Time: 04/09/2020 12:40 Notice Type: IM Discharge Notice Notice Delivered To: Patient Relationship to Patient: Self Food Consultant Name: Delivery Method: HAND - Hand Delivered Isabel Days: Prior Verbal Notification: Recipient Understood Notice: Yes Recipient Signature: Yes Med Rec Note Co-signed by Attending: Coverage Notice Comment: Last DP export: 04/09/20 2:03 p Patient Name: MEJIA CODY Page 96497 at 0918 All edits/amendments must be made on the electronic document DICTATION DATE: 04/10/20916 SENIOR MAJOR GIFTS OFFICER: RANDI 04/10/20916 RPT#: [id number] DC DATE:04/09/20 STATUS: DIS IN [facility] [address] [place] [address] END OF REPORT
--- NOTE | 2020-04-10 09:24 | MORECARE ---
CASE MANAGEMENT DISCHARGE SUMMARY PATIENT: MEJIA CODY UNIT: [id number] ADM DATE: 04/05/20 AGE: 74 : 43 SEX: M ROOM/BED: D.2210 AUTHOR: NICOLAS,DOC PHYSICIAN: REFERRING PHYSICIAN: DEMARIO HARRIS MD DATE OF SERVICE: 04/10/20 Discharge Plan Patient Name: MEJIA CODY Facility: [facility]:[place] : 1945 Planned Disposition: Home or Self Care Anticipated Discharge Date: Discharge Date: 04/09/2020 Expected LOS: Initial Reviewer: [email or web address] Initial Review Date: 04/05/2020 Generated: 04/10/20 10:24 am Comments DCP- Discharge Planning Updated by [email or web address]: Susan Geiger on 04/10/20 8:[address] LATE ENTRY 04/09/20 CM notified of discharge and need for HHS. CM met with patient and RONEN signed for [facility]. CM notified [facility] of referral and faxed records. [facility] will be out to admit on Saturday since patient stated he had an appointment on Saturday. Nursing to send home flushes and teach patient on Bili drain before discharge. D/C IMM signed 04/09/20 @ 1240. DCP- Discharge Planning Updated by [email or web address]: Jeanine Gregory on 04/08/20 1:[address] Patient Name: MEJIA CODY Admission Status: ER Accout number: [id number] Admission Date: 04-05-2020 : 1945 Admission Diagnosis:UNSPECIFIED JAUNDICE Attending: GARRETT HARRIS Current LOS: 3 Anticipated DC Date: Planned Disposition: Home or Self Care Primary Insurance: HUMANA CHOICE PPO MCR ADVANT Discharge Planning Comments: CM met with patient to complete initial dc planning assessment. CM educated patient on the CM role and verbal consent given by patient to complete assessment. Patient lives at home with his where he is independent with his care. At discharge patient plans to return home and feels this is a safe discharge. CM discussed availability of home health, rehab services, and medical equipment. Patient denied known discharge needs at this time. CM will continue to follow and will assist as needed with dc plans/needs. Emergency Vehicle Operator: Jeanine Gregory DCPIA - Discharge Planning Initial Assessment Updated by [email or web address]: Jeanine Gregory on 04/08/20 2:47 pm * Is the patient Alert and Oriented? Yes * How many steps to enter\exit or inside your home? * PCP M[facility]ITON * Pharmacy [facility] * Preadmission Environment Home with Family * ADLs Independent * Equipment None * List name and contact numbers for known caregivers / representatives who currently or will assist patient after discharge: IRENE () [phone] * Verbal permission to speak to the caregivers and representatives has been obtained from the patient. N/A * Community resources currently utilized None * Additional services required to return to the preadmission environment? No * Can the patient safely return to the preadmission environment? Yes * Has this patient been hospitalized within the prior 30 days at any hospital? No Coverage Notice Reviewer: [email or web address] Sunita Geiger Notice Issued Date-Time: 04/09/2020 12:40 Notice Type: IM Discharge Notice Notice Delivered To: Patient Relationship to Patient: Self Integrated Marketing Specialist Name: Delivery Method: HAND - Hand Delivered Isabel Days: Prior Verbal Notification: Recipient Understood Notice: Yes Recipient Signature: Yes Med Rec Note Co-signed by Attending: Coverage Notice Comment: Last DP export: 04/10/20 8:18 a Patient Name: MEJIA CODY Page 96558 at 0924 All edits/amendments must be made on the electronic document DICTATION DATE: 04/10/20923 HEAD OF MATHEMATICS: RANDI 04/10/20923 RPT#: [id number] DC DATE:04/09/20 STATUS: DIS IN [facility] [address] [place] [address] END OF REPORT
== END 2020-04-09 13:13 | disposition home health service (06) | DRG 441 ==
LOC: D.ER 11:32 → D.MS 14:45
PROVIDERS: Family Medicine; Internal Medicine Gastroenterology; Specialist; ADMIT Emergency Medicine; ATTEND Emergency Medicine
PROC: 0DB Gastrointestinal System, Excision (ICD-10-PCS; 2020-04-06)
PROC: 0FBD8ZX Excision of Pancreatic Duct, Via Natural or Artificial Opening Endoscopic, Diagnostic (ICD-10-PCS; principal; 2020-04-06 14:30)
PROC: 0F9930Z Drainage of Common Bile Duct with Drainage Device, Percutaneous Approach (ICD-10-PCS; 2020-04-07)
PROC: 0FB93ZX Excision of Common Bile Duct, Percutaneous Approach, Diagnostic (ICD-10-PCS; 2020-04-07)
DX: K72.00 Acute and subacute hepatic failure without coma (principal); E43 Unspecified severe protein-calorie malnutrition; F17.203 Nicotine dependence unspecified, with withdrawal; N39.0 Urinary tract infection, site not specified; E87.1 Hypo-osmolality and hyponatremia; Z68.1 Body mass index [BMI] 19.9 or less, adult; K86.9 Disease of pancreas, unspecified; D64.9 Anemia, unspecified; I71.4 Abdominal aortic aneurysm, without rupture; J44.9 Chronic obstructive pulmonary disease, unspecified; E11.40 Type 2 diabetes mellitus with diabetic neuropathy, unspecified; E11.51 Type 2 diabetes mellitus with diabetic peripheral angiopathy without gangrene; I10 Essential (primary) hypertension; E11.65 Type 2 diabetes mellitus with hyperglycemia; Z72.89 Other problems related to lifestyle

== ENCOUNTER → 2020-05-03 10:55 | Day surgery (SDC) | payer MEDICARE ==
[2020-04-06 13:19] VITALS: BMI 17.9
[~2020-05-03 10:55] MED LIST changes: +AUGMENTIN 875-11 TAB PO; +FOLIC ACID1 MG PO; +MULTI-DAY VITAM1 TAB PO; +NICODERM CQ1 EAC3 TRANSDERM; +VITAMIN B-1100 M1 PO
== END | disposition home or self-care (01) ==
LOC: D.CT 10:00 → D.US 10:30
PROVIDERS: ATTEND Internal Medicine Cardiovascular Disease
DX: I71.2 Thoracic aortic aneurysm, without rupture (principal); I65.21 Occlusion and stenosis of right carotid artery

== ENCOUNTER → 2020-05-13 10:10 | Day surgery (SDC) | payer MEDICARE ==
[2020-04-06 13:19] VITALS: BMI 17.9
[2020-05-13 10:50] LABS: HEMATOCRIT 37.4 % (42.0-54.0); HEMOGLOBIN 12.4 g/dL (13.5-17.5); IMMATURE GRANULOCYTES 0.6 % (0-5); MCH 32.6 pg (26.0-34.0); MCHC 33.2 g/dL (31.0-37.0); MCV 98.4 fL (80.0-100.0); MEAN PLATELET VOLUME 10.1 fL (7.4-10.4); RDW 15.1 % (11.5-14.5); WBC 9.6 10x3/uL (4.8-10.8)
[2020-05-13 10:52] LABS: PLATELET COUNT 108 10x3/uL (130-400)
[2020-05-13 10:59] LABS: APTT 30.2 SECONDS (22.8-39.4); INR 1.11 (0.85-1.17); PROTIME 14.3 SECONDS (11.6-15.0)
[2020-05-13 11:01] LABS: CALC OSMOLALITY 279 mosm/kg (275-300); CALCIUM 8.8 mg/dL (8.5-10.1); CARBON DIOXIDE 23.5 mmol/L (21.0-32.0); CHLORIDE - SERUM 102 mmol/L (98-107); CREATININE - SERUM 0.9 mg/dL (0.6-1.3); GLUCOSE 187 mg/dL (74-106); POTASSIUM - SERUM 4.7 mmol/L (3.5-5.1); SODIUM 136 mmol/L (136-145); UREA NITROGEN 21 mg/dL (7-18); eGFR NON AFRICAN AMERICAN 87 mL/min (90-120)
[2020-05-13 12:28] LABS: EOSINOPHILS 2 % (0-7); LYMPHOCYTES 17 % (15-50); MONOCYTES 6 % (2-11); NEUTROPHILS 75 % (40-80); PLATELET ESTIMATE DECREASED
[2020-05-13 12:29] LABS: ROULEAUX OCC
== END | disposition home or self-care (01) ==
LOC: D.SP 10:10 → D.RAD 13:00 → D.SP 13:00
PROVIDERS: Anesthesiology; ATTEND Specialist
DX: I63.9 Cerebral infarction, unspecified (principal); R13.10 Dysphagia, unspecified; D69.59 Other secondary thrombocytopenia; T45.1X5A Adverse effect of antineoplastic and immunosuppressive drugs, initial encounter; C22.1 Intrahepatic bile duct carcinoma; E11.65 Type 2 diabetes mellitus with hyperglycemia; C80.1 Malignant (primary) neoplasm, unspecified; R64 Cachexia; I10 Essential (primary) hypertension; J44.9 Chronic obstructive pulmonary disease, unspecified; Z72.0 Tobacco use; Z79.84 Long term (current) use of oral hypoglycemic drugs

== ENCOUNTER 2020-05-17 05:51 | Day surgery (SDC) | payer MEDICARE ==
[~2020-05-17] VITALS: Ht 182.9 cm; Wt 56.2 kg
--- NOTE | ~2020-05-17 | HEMODYNAMI ---
PATIENT:MEJIA CODY MEDICAL RECORD: [id number] : 41 LOCATION:[facility] ADMISSION DATE: 05/17/20 Generatedon:05/17/202015:55 Patient name: MEJIA CODY Patient #: [id number] SSN: : 1945 Date of study: 05/17/2020 Page: Of Hemodynamic Procedure Report Patient Data Patient Demographics Procedure consent was obtained First Name: MEJIA Gender: Male Last Name: ESCOBAR : 1945 [facility] Initial: PRISCILA Age: 74 year(s) Patient #: [id number] Race: Unknown Additional ID: [id number] Contact details [address]: [address] [place] [address] State: [place] City: [place] Zip code: [address] Past Medical History Allergies: No known allergies Admission Admission Data Admission Date: 05/17/2020 Admission Time: 5:51 Height (in.): 72 BSA: 1.73 (m2) Height (cm.): 182.88 BMI: 16.68 (kg/m2) Weight (lbs.): 123 Weight (kg.): 55.79 Procedure Procedure Types Cath Procedure Peripheral Cath Diagnostic Procedure Patient Registration Representative Peripheral Procedures Biliary Cholangio Thru Existing Procedure Description Procedure Date Procedure Date: 05/17/2020 Procedure Start Time: 15:20 Procedure Staff Name Function Andrea Prado MD Performing Physician Yris Keith RT Drying Equipment Operator Tanisha Wallace RN Nurse Miky Mendoza RT Scrub Procedure Data Cath Procedure Fluoroscopy Diagnostic fluoroscopy Total fluoroscopy Time: 6.1 time: 6.1 min min Diagnostic fluoroscopy Total fluoroscopy dose: 118 dose: 118 mGy mGy Contrast Material Contrast Material Type Amount (ml) Isovue 300 35 Diagnostic catheters Device Type Used For End Catheter Placement Merit UHF Pigtail VESSEL SIZING 5Fr 65CM catheter ([id number]) Procedure Medications Medication Administration Route Dosage Refer to Anesthesia Notes for Sedation Medications Hemodynamics Rest BSA: 1.73 (m2) O2 Consumption: Estimated: 198.38 (ml/min) O2 Consumption indexed : Estimated:114.67 (ml/min/m) Heart Rate: 70 (bpm) Snapshots Pre Cath Intra NCS Post Cath Vital Signs Time Heart Resp SPO2 etCO2 NIBP (mmHg) Rhythm Pain Sedation Rate (ipm) (%) (mmHg) Status Level (bpm) 14:59:59 65 8 0 125/57(97) NSR 0 (11) 10(A) , No pain 15:04:57 63 12 12.7 Measuring NSR 0 (11) 10(A) , No pain 15:05:24 62 13 25.4 110/52(83) NSR 0 (11) 10(A) , No pain 15:09:32 60 15 0 100/50(80) NSR 0 (11) 10(A) , No pain 15:14:00 60 15 100 0 111/49(80) NSR 0 (11) 10(A) , No pain 15:18:06 60 16 100 0 109/49(82) NSR 0 (11) 10(A) , No pain 15:22:10 60 17 100 0.7 116/57(89) NSR 0 (11) 10(A) , No pain 15:26:20 61 17 100 0 112/51(91) NSR 0 (11) 10(A) , No pain 15:30:27 61 19 100 0 116/54(92) NSR 0 (11) 10(A) , No pain 15:34:40 60 16 100 0 104/44(82) NSR 0 (11) 10(A) , No pain 15:39:28 65 12 100 26.1 145/85(121) NSR 0 (11) 10(A) , No pain 15:43:46 63 18 100 0 107/55(86) NSR 0 (11) 10(A) , No pain 15:47:54 61 17 100 0 106/49(86) NSR 0 (11) 10(A) , No pain 15:51:58 60 20 2.9 125/59(100) NSR 0 (11) 10(A) , No pain Medications Time Medication Route Dose Delivered Reason Notes Effectiveness by 15:30:05 Refer to Anesthesia Notes for Sedation Medications Procedure Log Time Note 14:45:27 Patient Height : 72 inches 14:45:31 Patient Weight : 123 lbs 14:45:58 Time tracking: Regular hours (M-F 7:00 - 5:00) 14:46:16 Plan of Care:Hemodynamics will remain stable., Cardiac rhythm will remain stable., Comfort level will be maintained., Respiratory function will remain adequate., Patient/ family verbilizes understanding of procedure., Procedure tolerated without complication., Recovers from procedure without complications.. 14:46:25 Patient received from Outpatients to IR Alert and oriented. Tansferred to table in Supine position. 14:46:33 Signed procedure consent form obtained from patient. 14:46:39 H&P Date Dictated: 05/17/2020 Within 30 days and on chart., H&P Addendum completed by physician on day of procedure. (MUST COMPLETE FOR ALL OUTPATIENTS). 14:46:44 Pre-procedure instructions explained to patient. 14:46:45 Pre-op teaching completed and patient verbalized understanding. 14:46:48 Patient NPO since Midnight. 14:46:52 Family unavailable. 14:47:07 Patient allergic to No known allergies 14:47:14 Is the patient allergic to Iodine/contrast media? No. 14:48:01 Is patient on blood thinner?No 14:48:21 Patient diabetic? Yes. 14:48:26 If diabetic: On Metformin? Yes 14:48:48 If on Metformin: Last Dose? 05/16/2020 14:48:51 - 14:48:55 ----Pre-sedation anethsthesia assessment.----see anesthesia notes for monitoring of patient during procedure 14:49:25 - 14:49:36 Right abdomen area was prepped with chlora-prep and draped in sterile fashion 14:49:38 - 14:49:43 Use device set IR Diagnostic 14:49:44 Tegaderm 4 x 4 ([id number]) opened to sterile field. 14:49:46 Sterile Angiographic Pack opened to sterile field. 14:49:47 Bag Decanter (2002S) opened to sterile field. 14:58:52 ECG and BP/O2 sat monitors applied to patient. 14:58:53 Vital chart was started 14:58:55 Full Disclosure recording started 14:58:57 - 14:59:01 Baseline sample Acquired. 15:00:05 St Munir 10FR 23CM sheath opened to sterile field. 15:19:55 Physician arrived 15:19:56 Physician arrived 15:19:57 --------ALL STOP TIME OUT------ 15:19:58 Final Timeout: patient, procedure, and site verified with staff and physician. All members of the team are in agreement. 15:20:22 Fire Safety Assessment: A--An alcohol-based skin anteseptic being used preoperatively., C--Open oxygen or nitrous oxide is being used. 15:20:28 Procedure started. 15:20:38 Local anesthetic to Abdominal area with Lidocaine 1% by Andrea Prado MD.INITIAL ACCESS ONLY 15:23:09 [facility] .035 260 glide wire ([id number]) opened to sterile field. 15:26:[address] [facility] Pigtail VESSEL SIZING 5Fr 65CM catheter ([id number]) was advanced over the wire and used for . 15:26:14 AMPLATZ Super stiff 180cm wire ([id number]) opened to sterile field. 15:30:05 Refer to Anesthesia Notes for Sedation Medications was administered by ; ; Verbal order read back and verified. 15:39:44 Inflate balloon Inflation number: 1 A EVERCROSS 10 X 60 X 135 BALLOOON ([id number]) was prepped and advanced across the undefined 1, then inflated . 15:40:36 INFLATOR BasixTOUCH ([id number]) opened to sterile field. 15:45:57 Procedure ended.(Physican Out) 15:46:58 Fluoroscopy time 06.10 minutes. 15:47:02 Fluoroscopy dose: 118 mGy 15:47:02 Flurop Dose total: 118 15:47:07 Contrast amount:Isovue 300 35ml. 15:47:12 Procedure and supply charges have been captured, reviewed, submitted an d are correct. 15:54:41 Report given to Outpatients. 15:55:01 Vital chart was stopped Intervention Summary Intervention Notes Time ActionType Lesion and Equipment Used Action# Pressure Duration Attributes 15:39:44 Inflate Undefined1 EVERCROSS 10 X 1 0 00:00 balloon 60 X 135 BALLOOON ([id number]) Device Usage Item Name Manufacture Quantity Catalog Number Hospital Part Current M inimal Lot# / Charge Number Stock Stock Serial# Code Tegaderm 4 x 4 3M 1 [id number] 5 (1626W) Sterile Cardinal 1 [id number] 598573 607675 5 Angiographic Health Pack Bag Decanter Microtek 1 2001S 228853 41893 981189 5 (2001S) Medical Inc. St Munir 10FR [employer] Munir 1 [id number] 557386 168343 5 23CM sheath ROADRUNNER .035 [employer] 1 [id number] 292487 211278 340810 5 260 glide wire ([id number]) Merit UHF Merit 1 [id number] 978590 045127 5 Pigtail VESSEL Medical SIZING 5Fr 65CM catheter ([id number]) AMPLATZ Super [place] 1 [id number] 770206 310794 468000 5 stiff 180cm Scientific wire ([id number]) EVERCROSS 10 X Medtronic 1 [id number] 166114 1 60 X 135 BALLOOON ([id number]) INFLATOR Merit 1 YQ5072 952311 423182 615341 5 [facility] ([id number]) Signature Audit [place] Stage Time Signature Unsigned Intra-Procedure 05/17/2020 Yris Keith 3:54:57 PM RT(R) [facility] [address] [place] [address]
--- NOTE | ~2020-05-17 | OP ---
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 PROCEDURES: 1. Placement of right infraclavicular PowerPort under fluoroscopic guidance. 2. Immediate surgeon interpretation of the fluoroscopic images. SURGEON: Jose De Jesus Lee MD SLURRY CONTROL OPERATOR HELPER: None. BLOOD LOSS: Minimal. ANESTHESIA: General. COMPLICATIONS: None. The risks, possible complications and alternatives to the procedure were explained to the patient. He elects to proceed. The patient has a left-sided pacemaker. For this reason, we are going to place the port on the right side. No radiologist was present for this procedure. Static fluoroscopic images were obtained and are kept in the PACS system. The surgeon interpretation of the radiographic images is dictated within the body of this operative note. OPERATIVE COURSE: The patient was conveyed to the operating room electively on 05/17/2020. General anesthesia was induced by the anesthesia staff. The right chest and right neck was sterilely prepped and draped. The patient was positioned in the Trendelenburg position. Under ultrasonographic guidance, I percutaneously accessed the right internal jugular vein in an antegrade fashion. A guidewire passed easily. This was visualized under fluoroscopy. An incision was accomplished around the guidewire. A counterincision was accomplished in the right anterior superior infraclavicular chest. Through this transverse incision, I created a pocket in a caudad direction. I then excised some of the subcutaneous adipose tissue from the anterior portion of the pocket to allow for easier access of the port. From the chest incision to the neck incision, I tunneled the PowerPort catheter. Over the wire, I advanced a dilator sheath. This was visualized under fluoroscopy. The dilator and wire were removed. Through this sheath, I advanced the PowerPort catheter. The Peel-Away sheath was then removed. Under real time fluoroscopy, I withdrew the PowerPort catheter until its tip was at the cavoatrial junction. I shortened the catheter. It was attached to the PowerPort. The locking device was firmly engaged. The port was then placed in the subcutaneous pocket. Utilizing 3-point fixation with 3-0 Prolenes, I OPERATIVE REPORT [id number] MEJIA CODY sutured the port to the underlying pectoralis fascia. I irrigated in the port pocket. The subdermis at the port pocket was closed with interrupted 3-0 Vicryl sutures. The skin was approximated with a running intracuticular 4-0 Vicryl. The skin at the neck was closed with interrupted intracuticular 4-0 Vicryls. Under fluoroscopy, there was no radiographic evidence of complication. No evidence of kinking or twisting of the PowerPort catheter. No pneumothorax. I then percutaneously accessed the port. It accessed easily. It flushed easily and aspirated dark, nonpulsatile blood. A sterile dressing was applied. The patient was then extubated and conveyed to the post-anesthesia care unit where he was in stable condition. The port can be used immediately. TRANSINT:[id number] Voice Confirmation ID: [id number] DOCUMENT ID: [id number] JOSE DE JESUS LEE MD CC: [id number] DICTATION DATE: 05/26/20 1019 HYSTER MACHINE OPERATOR: 05/26/20 1051 [facility] 05/17/20 [facility] [address] [place] [address]
[2020-05-17 06:36] LABS: BASOPHILS 0.3 % (0-2); EOSINOPHILS 1.7 % (0-7); HEMATOCRIT 37.5 % (42.0-54.0); HEMOGLOBIN 12.3 g/dL (13.5-17.5); IMMATURE GRANULOCYTES 0.6 % (0-5); LYMPHOCYTES 10.2 % (15-50); MCH 31.9 pg (26.0-34.0); MCHC 32.8 g/dL (31.0-37.0); MCV 97.2 fL (80.0-100.0); MEAN PLATELET VOLUME 11.4 fL (7.4-10.4); MONOCYTES 9.6 % (2-11); NEUTROPHILS 77.6 % (40-80); RBC 3.86 10x6/uL (4.20-6.10); RDW 14.7 % (11.5-14.5)
[2020-05-17 06:41] LABS: PLATELET COUNT 77 10x3/uL (130-400)
[2020-05-17 07:01] VITALS: BP 135/59; BMI 16.8
[2020-05-17 07:05] LABS: ALBUMIN 3.3 g/dL (3.4-5.0); ALKALINE PHOSPHATASE 276 U/L (30-120); ALT (SGPT) 46 U/L (10-68); BILIRUBIN - TOTAL 1.11 mg/dL (0.2-1.3); CALC OSMOLALITY 280 mosm/kg (275-300); CARBON DIOXIDE 22.3 mmol/L (21.0-32.0); CHLORIDE - SERUM 102 mmol/L (98-107); CREATININE - SERUM 0.9 mg/dL (0.6-1.3); GLUCOSE 179 mg/dL (74-106); POTASSIUM - SERUM 5.1 mmol/L (3.5-5.1); PROTEIN - SERUM 6.5 g/dL (6.4-8.2); SODIUM 137 mmol/L (136-145); UREA NITROGEN 21 mg/dL (7-18); eGFR NON AFRICAN AMERICAN 87 mL/min (90-120)
[2020-05-17 12:59] VITALS: Ht 182.9 cm; Wt 56.2 kg
[2020-05-17 13:13] LABS: ACANTHOCYTES OCC; ANISOCYTOSIS OCC; CRENATED CELLS OCC; PLATELET ESTIMATE DECREASED; ROULEAUX OCC
--- NOTE | 2020-05-17 17:50 | NUR ---
WHEN THIS NURSE RETURNS FROM DISCHARGING A DIFFERENT PATIENT, PATIENT IS SEEN STANDING AT NURSES STATION WITH SPOUSE. THIS NURSE EXPLAINS THAT PATIENT MAY BE DISCHARGED AT 6 PM AND NEED TO GO OVER DISCHARGE INSTRUCTIONS FIRST, PATIENT STATES "THAT SOUNDS LIKE JUST A FORMALITY. I AM READY TO GO NOW."
--- NOTE | 2020-05-17 17:56 | NUR ---
DISCHARGE INSTRUCTIONS REVIEWED WITH PATIENT AND SPOUSE, DISCHARGED HOME VIA WHEELCHAIR TO PRIVATE VEHICLE WITH SPOUSE
== END 2020-05-17 17:56 | disposition home or self-care (01) ==
LOC: D.OPS 05:51
PROVIDERS: ATTEND Surgery
DX: C24.9 Malignant neoplasm of biliary tract, unspecified (principal)

== ENCOUNTER 2020-05-20 10:05 | Emergency (ER) | payer MEDICARE ==
[~2020-05-20] VITALS: Ht 182.9 cm; Wt 59.0 kg
[2020-05-20 10:09] VITALS: Ht 182.9 cm; Wt 59.0 kg
[2020-05-20 12:06] LABS: CALC OSMOLALITY 283 mosm/kg (275-300); CALCIUM 8.8 mg/dL (8.5-10.1); CARBON DIOXIDE 22.2 mmol/L (21.0-32.0); CHLORIDE - SERUM 102 mmol/L (98-107); CREATININE - SERUM 0.9 mg/dL (0.6-1.3); GLUCOSE 197 mg/dL (74-106); SODIUM 135 mmol/L (136-145); UREA NITROGEN 39 mg/dL (7-18); eGFR NON AFRICAN AMERICAN 87 mL/min (90-120)
[2020-05-20 12:12] LABS: ALKALINE PHOSPHATASE 233 U/L (30-120); ALT (SGPT) 88 U/L (10-68); AMYLASE - SERUM 11 U/L (25-115); BILIRUBIN - TOTAL 1.01 mg/dL (0.2-1.3); LIPASE 43 U/L (73-393); MAGNESIUM - SERUM 1.5 mg/dL (1.8-2.4); PROTEIN - SERUM 6.3 g/dL (6.4-8.2)
[2020-05-20 12:24] LABS: BASOPHILS 0 % (0-2); EOSINOPHILS 0.2 % (0-7); HEMATOCRIT 32.1 % (42.0-54.0); HEMOGLOBIN 10.5 g/dL (13.5-17.5); IMMATURE GRANULOCYTES 0.2 % (0-5); LYMPHOCYTES 3.4 % (15-50); MCH 31.9 pg (26.0-34.0); MCHC 32.7 g/dL (31.0-37.0); MCV 97.6 fL (80.0-100.0); MEAN PLATELET VOLUME 10.6 fL (7.4-10.4); MONOCYTES 0.5 % (2-11); NEUTROPHILS 95.7 % (40-80); RBC 3.29 10x6/uL (4.20-6.10); RDW 14.4 % (11.5-14.5); WBC 11.2 10x3/uL (4.8-10.8)
[2020-05-20 12:25] LABS: PLATELET COUNT 35 10x3/uL (130-400)
[2020-05-20 14:55] VITALS: BP 137/49
[2020-05-20 15:06] LABS: PLATELET ESTIMATE DECREASED
[2020-05-20 15:08] LABS: ANISOCYTOSIS OCC; CRENATED CELLS OCC; ROULEAUX OCC
== END 2020-05-20 14:55 | disposition other institution (70) ==
LOC: D.ER 10:05
PROVIDERS: Emergency Medicine
DX: I63.9 Cerebral infarction, unspecified (principal); C80.1 Malignant (primary) neoplasm, unspecified; R64 Cachexia; D69.59 Other secondary thrombocytopenia; T45.1X5A Adverse effect of antineoplastic and immunosuppressive drugs, initial encounter; C78.89 Secondary malignant neoplasm of other digestive organs; E11.65 Type 2 diabetes mellitus with hyperglycemia; Z79.84 Long term (current) use of oral hypoglycemic drugs; I10 Essential (primary) hypertension; Z95.0 Presence of cardiac pacemaker; J44.9 Chronic obstructive pulmonary disease, unspecified